=== PATIENT | female | born 1970 | race American Indian/Alaskan Native ===

== ENCOUNTER 2016-02-12 17:47 | Emergency (ER) | payer MEDICARE ==
--- NOTE | 2016-02-12 19:08 | Emergency Department Report ---
Chief Complaint: Fall Stated Complaint: MS Time Seen by Provider: 02/12/16 19:07 - HPI History of Present Illness: Patient here complaining that she fell in her house last night while walking. Denies dizziness before falling. She is complaining of increasing right leg pain.. Denies any head injury or loss of consciousness. She is complaining of increasing bilateral leg weakness since Tuesday. Patient has multiple sclerosis for 11 years and she is on Rituxmab infusion every 6 months. She last saw her multiple sclerosis doctor who is located at [facility] in October. Says she called him today to get in an appointment but he sent her to the emergency room. His name is Dr. Bg Nelson. Patient's also reporting decreased appetite. She said nothing taste or smell good. - ROS Review of Systems: All systems are negative unless stated in HPI above. - Exam Vital Signs: Vital Signs 02/12/16 18:07 Temperature 97.8 F Pulse Rate 85 Respiratory 18 Rate Blood Pressure 140/85 O2 Sat by Pulse 100 Oximetry Physical Exam: General: 45 year-old female well-nourished well-developed in no acute distress. CV: S1, S2. Regular rate and rhythm. Extremity: No clubbing, cyanosis or edema. +2 pulses. MSK: Limited range of motion to bilateral lower extremity. Patient walks with a cane. Creased strength to bilateral lower extremity. MSE screening note: Focused history and physical exam performed. Due to findings the following was ordered:see [facility] ED Medical Decision Making - Medical Decision Making Medical decision making: Patient seen by provider in triage area. Appropriate protocol activated and patient to main ED to be seen by physician. ED Disposition for MSE Condition: Stable
[2016-02-12 19:42] LABS: Basophils % (Auto) 0.8 % (0.0-1.8); Eosinophils % (Auto) 2.5 % (0.0-4.3); Hematocrit 43.2 % (30.3-42.9); Mean Corpuscular HGB Conc 32 % (30-34); Mean Corpuscular Hemoglobin 27 pg (28-32); Mean Corpuscular Volume 82 fl (79-97); Platelet Count 251 K/mm3 (140-440); Red Blood Count 5.26 M/mm3 (3.65-5.03); Red Cell Distribution Width 14.5 % (13.2-15.2); White Blood Count 5.9 K/mm3 (4.5-11.0)
[2016-02-12 20:07] LABS: Alanine Aminotransferase 10 units/L (7-56); Albumin/Globulin Ratio 1.4 %; Alkaline Phosphatase 69 units/L (35-129); Bilirubin,Total 0.5 mg/dL (0.1-1.2); Blood Urea Nitrogen 9 mg/dL (7-17); Calcium 8.9 mg/dL (8.4-10.2); Carbon Dioxide 25 mmol/L (22-30); Creatine Kinase 199 units/L (30-135); Glucose 105 mg/dL (65-100); Magnesium 1.8 mg/dL (1.7-2.3); Phosphorous 2.9 mg/dL (2.5-4.5); Total Protein 6.9 g/dL (6.3-8.2)
[2016-02-12 20:08] LABS: Anion Gap 17 mmol/L; Chloride 104.3 mmol/L (98-107); Potassium 3.6 mmol/L (3.6-5.0); Sodium 143 mmol/L (137-145)
[2016-02-12 20:22] LABS: Erythrocyte Sedimentation Rate 5 mm/Hr (0-20)
[2016-02-13 00:28] LABS: Bilirubin,Urine NEG (Negative); Blood,Urine NEG (Negative); Ketones,Urine NEG (Negative); Leukocyte Esterase,Urine NEG (Negative); Mucus,Urine FEW /HPF; Nitrite,Urine NEG (Negative); Protein,Urine <15 mg/dL mg/dL (Negative)
--- NOTE | 2016-02-13 03:24 | Emergency Department Report ---
[id number] Time Seen by Provider: 02/12/16 19:07 Source: patient, RN notes reviewed Mode of arrival: Ambulatory Limitations: Physical Limitation - History of Present Illness Initial comments: This is a 45-year-old female, previously unknown to me. Her private neurologist is Dr. Neville Nelson at [facility] Patient reports a history of multiple sclerosis, with multiple lifetime exacerbations. She presents to the ear complaining of her typical multiple sclerosis exacerbation. She complains of right lower extremity pain, subjective weakness, and "overactive bladder." Symptoms started yesterday. There is no headache or neck pain. There is no chest pain or shortness of breath. There is no abdominal pain. There is no saddle anesthesia. There is no fecal retention or incontinence. There is no urinary retention. Patient reports her symptoms are similar to prior episodes of multiple sclerosis flares and exacerbations. Her symptoms have been constant since yesterday. They have no exacerbating or relieving factors. She reports that she fell last night while walking. Did not hit her head. -: Gradual Severity scale (0 -10): 0 Consistency: constant Improves with: none Worsens with: none Associated Symptoms: weakness. denies: confusion, chest pain, cough, diaphoresis, fever/chills, headaches, loss of appetite, malaise, nausea/vomiting , rash, seizure, shortness of breath, syncope - Related Data Allergies Allergy/AdvReac Type Severity Reaction Status Date / Time No Known Allergies Allergy Unverified 02/12/16 18:11 ED Review of Systems ROS: Stated complaint: MS Other details as noted in HPI Constitutional: denies: fever Eyes: denies: vision change ENT: denies: epistaxis Respiratory: see HPI. denies: cough Cardiovascular: denies: chest pain Gastrointestinal: denies: abdominal pain Genitourinary: as per HPI. denies: dysuria Musculoskeletal: back pain Neurological: as per HPI. denies: headache Psychiatric: as per HPI ED Past Medical Hx - Past Medical History Additional medical history: MS (DX 2005). FIBROIDS - Surgical History Additional Surgical History: ECTOPIC X 2 - TUBES REMOVED. UTERINE ABLATION - Social History Smoking Status: Never Smoker Substance Use Type: None ED Physical Exam - General Limitations: Physical Limitation General appearance: alert, in no apparent distress - Head Head exam: Present: atraumatic, normocephalic - Eye Eye exam: Present: normal appearance, PERRL, EOMI. Absent: nystagmus - ENT ENT exam: Present: normal exam, normal orophraynx, mucous membranes moist - Neck Neck exam: Present: normal inspection, full ROM. Absent: tenderness, meningismus - Respiratory Respiratory exam: Present: normal lung sounds bilaterally. Absent: respiratory distress, wheezes, rales, rhonchi, stridor, chest wall tenderness - Cardiovascular Cardiovascular Exam: Present: regular rate, normal rhythm, normal heart sounds. Absent: bradycardia, tachycardia, irregular rhythm, systolic murmur, diastolic murmur, rubs, gallop - GI/Abdominal GI/Abdominal exam: Present: soft, normal bowel sounds. Absent: distended, tenderness, guarding, rebound, rigid, pulsatile mass - Extremities Exam Extremities exam: Present: normal inspection, full ROM, normal capillary refill. Absent: tenderness, pedal edema, joint swelling, calf tenderness - Back Exam Back exam: Present: normal inspection, full ROM. Absent: tenderness, CVA tenderness (R), CVA tenderness (L), muscle spasm, paraspinal tenderness, vertebral tenderness - Neurological Exam Neurological exam: Present: alert, oriented X3, reflexes normal (2+ biceps, triceps, brachial radialis reflexes bilaterally. 2+ quadriceps reflexes bilaterally. There is no clonus. Downgoing plantar reflexes bilaterally.), other (Extraocular movements intact. Tongue midline. No facial droop. Facial sensation intact to light touch in the V1, V2, V3 distribution bilaterally. 5 and 5 strength in 4 extremities.. Sensation is intact to light touch in 4 extremities.). Absent: normal gait (patient walks with a slight limp. When weight bearing, she has difficulty with plantar flexion with the right foot. She is unable to get up from a squatting position. She is able to ambulate with a cane.) - Psychiatric Psychiatric exam: Present: normal affect, normal mood - Skin Skin exam: Present: warm, dry, intact, normal color. Absent: rash ED Course Vital Signs 02/12/16 02/12/16 02/13/16 18:07 23:59 00:21 Temperature 97.8 F 97.6 F Pulse Rate 85 62 Respiratory 18 20 18 Rate Blood Pressure 140/85 Blood Pressure 144/85 [Left] O2 Sat by Pulse 100 100 99 Oximetry 02/13/16 02/13/16 02/13/16 01:00 03:00 04:29 Temperature Pulse Rate 76 78 77 Respiratory 18 16 16 Rate Blood Pressure Blood Pressure 138/82 140/80 143/76 [Left] O2 Sat by Pulse 98 98 99 Oximetry - Reevaluation(s) Reevaluation #1: 02/13/16 03:22 Differential diagnosis: Urinary tract infection, multiple sclerosis flare Assessment and plan: 45-year-old female with clinically mild multiple sclerosis flare. Able to ambulate. Has some difficulty with plantar flexion and with getting up from a squatting position. No midline spinal tenderness. Laboratory studies reviewed. Urinalysis unremarkable. This hospital does not have neurology available for consultation. I have placed a page to [facility] to discuss management with neurology staff. Reevaluation #2: 02/13/16 03:54 Case is discussed with Dr. Adama Lopez at the [facility] [place]. We both agree that the patient does not require admission at this time. He instructed the patient should contact the clinic in the morning to arrange close follow-up. He further states that he will get in touch with the clinic to independently contact the patient, to try and arrange close follow-up. Patient will be discharged with instructions to contact the neurology clinic and follow-up. Return precautions are extensively reviewed. ED Medical Decision Making - Lab Data Result diagrams: 02/12/16 19:31 02/12/16 19:31 Vital Signs 02/12/16 02/12/16 02/13/16 18:07 23:59 00:21 Temperature 97.8 F 97.6 F Pulse Rate 85 62 Respiratory 18 20 18 Rate Blood Pressure 140/85 Blood Pressure 144/85 [Left] O2 Sat by Pulse 100 100 99 Oximetry 02/13/16 01:00 Temperature Pulse Rate 76 Respiratory 18 Rate Blood Pressure Blood Pressure 138/82 [Left] O2 Sat by Pulse 98 Oximetry Lab Results 02/12/16 02/12/16 02/12/16 Range/Units 19:31 19:31 19:31 WBC 5.9 (4.5-11.0) K/mm3 RBC 5.26 H (3.65-5.03) M/mm3 Hgb 14.0 (10.1-14.3) gm/dl Hct 43.2 H (30.3-42.9) % MCV 82 (79-97) fl MCH 27 L (28-32) pg MCHC 32 (30-34) % RDW 14.5 (13.2-15.2) % Plt Count 251 (140-440) K/mm3 Lymph % (Auto) 25.5 (13.4-35.0) % [place] % (Auto) 7.4 H (0.0-7.3) % Eos % (Auto) 2.5 (0.0-4.3) % Baso % (Auto) 0.8 (0.0-1.8) % Lymph # 1.5 (1.2-5.4) K/mm3 [place] # 0.4 (0.0-0.8) K/mm3 Eos # 0.1 (0.0-0.4) K/mm3 Baso # 0.0 (0.0-0.1) K/mm3 Seg Neutrophils % 63.8 (40.0-70.0) % Seg Neutrophils # 3.7 (1.8-7.7) K/mm3 ESR 5 (0-20) mm/Hr Sodium 143 (137-145) mmol/L Potassium 3.6 (3.6-5.0) mmol/L Chloride 104.3 (98-107) mmol/L Carbon Dioxide 25 (22-30) mmol/L Anion Gap 17 mmol/L BUN 9 (7-17) mg/dL Creatinine 0.6 L (0.7-1.2) mg/dL Estimated GFR > 60 ml/min BUN/Creatinine Ratio 15.00 % Glucose 105 H (65-100) mg/dL Calcium 8.9 (8.4-10.2) mg/dL Phosphorus 2.9 (2.5-4.5) mg/dL Magnesium 1.8 (1.7-2.3) mg/dL Total Bilirubin 0.5 (0.1-1.2) mg/dL AST 15 (5-40) units/L ALT 10 (7-56) units/L Alkaline Phosphatase 69 (35-129) units/L Total Creatine Kinase 199 H (30-135) units/L C-Reactive Protein 0.60 (0.00-1.30) mg/dL Total Protein 6.9 (6.3-8.2) g/dL Albumin 4.0 (3.9-5) g/dL Albumin/Globulin Ratio 1.4 % HCG, Qual (Negative) Urine Color (Yellow) Urine Turbidity (Clear) Urine pH (5.0-7.0) Ur Specific [place] (1.003-1.030) Urine Protein (Negative) mg/dL Urine Glucose (UA) (Negative) mg/dL Urine Ketones (Negative) mg/dL Urine Blood (Negative) Urine Nitrite (Negative) Urine Bilirubin (Negative) Urine Urobilinogen (<2.0) mg/dL Ur Leukocyte Esterase (Negative) Urine WBC (Auto) (0.0-6.0) /HPF Urine RBC (Auto) (0.0-6.0) /HPF U Epithel Cells (Auto) (0-13.0) /HPF Amorphous Crystals Urine Mucus /HPF 02/12/16 02/12/16 Range/Units 19:31 23:55 WBC (4.5-11.0) K/mm3 RBC (3.65-5.03) M/mm3 Hgb (10.1-14.3) gm/dl Hct (30.3-42.9) % MCV (79-97) fl MCH (28-32) pg MCHC (30-34) % RDW (13.2-15.2) % Plt Count (140-440) K/mm3 Lymph % (Auto) (13.4-35.0) % [place] % (Auto) (0.0-7.3) % Eos % (Auto) (0.0-4.3) % Baso % (Auto) (0.0-1.8) % Lymph # (1.2-5.4) K/mm3 [place] # (0.0-0.8) K/mm3 Eos # (0.0-0.4) K/mm3 Baso # (0.0-0.1) K/mm3 Seg Neutrophils % (40.0-70.0) % Seg Neutrophils # (1.8-7.7) K/mm3 ESR (0-20) mm/Hr Sodium (137-145) mmol/L Potassium (3.6-5.0) mmol/L Chloride (98-107) mmol/L Carbon Dioxide (22-30) mmol/L Anion Gap mmol/L BUN (7-17) mg/dL Creatinine (0.7-1.2) mg/dL Estimated GFR ml/min BUN/Creatinine Ratio % Glucose (65-100) mg/dL Calcium (8.4-10.2) mg/dL Phosphorus (2.5-4.5) mg/dL Magnesium (1.7-2.3) mg/dL Total Bilirubin (0.1-1.2) mg/dL AST (5-40) units/L ALT (7-56) units/L Alkaline Phosphatase (35-129) units/L Total Creatine Kinase (30-135) units/L C-Reactive Protein (0.00-1.30) mg/dL Total Protein (6.3-8.2) g/dL Albumin (3.9-5) g/dL Albumin/Globulin Ratio % HCG, Qual Negative (Negative) Urine Color Yellow (Yellow) Urine Turbidity Clear (Clear) Urine pH 6.0 (5.0-7.0) Ur Specific [place] 1.023 (1.003-1.030) Urine Protein <15 mg/dl (Negative) mg/dL Urine Glucose (UA) Neg (Negative) mg/dL Urine Ketones Neg (Negative) mg/dL Urine Blood Neg (Negative) Urine Nitrite Neg (Negative) Urine Bilirubin Neg (Negative) Urine Urobilinogen 2.0 (<2.0) mg/dL Ur Leukocyte Esterase Neg (Negative) Urine WBC (Auto) 3.0 (0.0-6.0) /HPF Urine RBC (Auto) 2.0 (0.0-6.0) /HPF U Epithel Cells (Auto) 3.0 (0-13.0) /HPF Amorphous Crystals 1+ Urine Mucus Few /HPF Critical care attestation.: If time is entered above; I have spent that time in minutes in the direct care of this critically ill patient, excluding procedure time. ED Disposition Clinical Impression: Back pain, History of multiple sclerosis Disposition: DISCHARGED TO HOME OR SELFCARE Is pt being admited?: No Does the pt Need Aspirin: No Condition: Good Instructions: Self-Care Measures with a Chronic Disease (ED) Additional Instructions: Continue current outpatient medications. Contact the [facility] clinic tomorrow to arrange outpatient appointment. Address: [address] [place] [address] [address], [place] [address] In addition, I have discussed her case with the covering neurologist, Dr. Lopez, who states that he will have the clinic attempt to contact you to arrange follow-up. Return to the ER right away with new pain, worsened pain, migration of pain, fevers or chills, nausea or vomiting, inability to tolerate feeds Referrals: YASIR ALTMAN [Other] - 3-5 Days ANDREA STEELE MD [Staff Physician] - 3-5 Days NANCY BETTENCOURT MD [Staff Physician] - 3-5 Days
[2016-02-13 04:29] VITALS: BP 143/76
== END 2016-02-13 04:31 | disposition home or self-care (01) ==
LOC: ED 17:47
DX: M54.9 Dorsalgia, unspecified (principal); G35 Multiple sclerosis
CPT/HCPCS: 36415; 80053; 81001; 82550; 83735; 84100; 84703; 85025; 85652; 86140

== ENCOUNTER 2016-09-08 14:45 | Emergency (ER) | payer MEDICARE ==
[2016-09-08 15:07] VITALS: BP 116/66
[2016-09-08 15:47] LABS: Basophils % (Auto) 0.5 % (0.0-1.8); Eosinophils % (Auto) 2.5 % (0.0-4.3); Hematocrit 44.9 % (30.3-42.9); Hemoglobin 14.7 gm/dl (10.1-14.3); Mean Corpuscular HGB Conc 33 % (30-34); Mean Corpuscular Hemoglobin 27 pg (28-32); Mean Corpuscular Volume 84 fl (79-97); Platelet Count 218 K/mm3 (140-440); Red Blood Count 5.37 M/mm3 (3.65-5.03); Red Cell Distribution Width 14.4 % (13.2-15.2); White Blood Count 4.4 K/mm3 (4.5-11.0)
[2016-09-08 15:54] LABS: Bacteria,Urine 1+ /HPF (Negative); Bilirubin,Urine NEG (Negative); Blood,Urine NEG (Negative); Ketones,Urine TR mg/dL (Negative); Leukocyte Esterase,Urine MOD (Negative); Mucus,Urine 1+ /HPF; Nitrite,Urine NEG (Negative); Protein,Urine <15 mg/dL mg/dL (Negative)
[2016-09-08 16:05] LABS: Alanine Aminotransferase 15 units/L (7-56); Albumin 4.5 g/dL (3.9-5); Albumin/Globulin Ratio 1.5 %; Alkaline Phosphatase 59 units/L (35-129); Anion Gap 16 mmol/L; BUN/Creatinine Ratio 16.66; Blood Urea Nitrogen 10 mg/dL (7-17); Calcium 9.5 mg/dL (8.4-10.2); Carbon Dioxide 27 mmol/L (22-30); Chloride 100.4 mmol/L (98-107); Glucose 92 mg/dL (65-100); Potassium 3.4 mmol/L (3.6-5.0); Sodium 140 mmol/L (137-145); Total Protein 7.6 g/dL (6.3-8.2)
== END 2016-09-08 21:05 | disposition left against medical advice (07) ==
LOC: ED 14:45
DX: R53.1 Weakness (principal); Z53.21 Procedure and treatment not carried out due to patient leaving prior to being seen by health care provider
CPT/HCPCS: 36415; 80053; 81001; 85025